=== PATIENT | female | born 1945 | race Caucasian/White ===

== ENCOUNTER 2016-07-08 02:21 | Emergency (ER) | payer MEDICARE ==
[2016-07-08 03:14] LABS: BASOPHIL % 0.3 % (0-2); PLATELET COUNT 262 x10^3mcL (130-400); RED CELL DISTRIBUTION WIDTH 14.4 % (11.5-14.5)
[2016-07-08 03:32] LABS: CALCIUM 8.8 mg/dL (8.5-10.1); CARBON DIOXIDE 27.7 mmol/L (21-32); CHLORIDE SERUM 106 mmol/L (98-107); CREATININE SERUM 0.7 mg/dL (0.6-1.0); GFR1 > 60 mL/min; GLUCOSE SERUM 177 mg/dL (74-106); POTASSIUM SERUM 3.6 mmol/L (3.5-5.1); SODIUM SERUM 143 mmol/L (136-145)
[2016-07-08 03:37] LABS: ALBUMIN 3.5 g/dL (3.4-5.0); ALKALINE PHOSPHATASE 103 U/L (46-116); ALT/SGPT 21 U/L (14-59); AST/SGOT 20 U/L (15-37); TOTAL PROTEIN, SERUM 7.2 g/dL (6.4-8.2)
[2016-07-08 05:34] VITALS: BP 150/68
== END 2016-07-08 05:34 | disposition short-term general hospital (02) ==
LOC: ED 02:21
PROVIDERS: Emergency Medicine
DX: I10 Essential (primary) hypertension (principal); I61.9 Nontraumatic intracerebral hemorrhage, unspecified
CPT/HCPCS: 83880; J1885; J2270; J2405; J2765; J3490; J7040

== ENCOUNTER 2017-07-30 18:06 | Inpatient (IN) | payer MEDICARE ==
[~2017-07-30] VITALS: Ht 160 cm; Wt 79.4 kg
[2017-07-30 18:15] VITALS: Ht 160 cm; Wt 79.4 kg
[2017-07-30] MEDS ORDERED: CARVEDILOL12.5 M1 PO (18:27)
[2017-07-30] MEDS ORDERED: METFORMIN HCL1000 MG PO (18:27)
[2017-07-30] MEDS ORDERED: PANTOPRAZOLE SO40 M1 PO (18:27)
[2017-07-30] MEDS ORDERED: ISOSORBIDE MONO30 MG PO (18:28)
[2017-07-30] MEDS ORDERED: LOSARTAN POTASS50 M1 PO (18:34)
[2017-07-30] MEDS ORDERED: SIMVASTATIN40 M1 PO (18:34)
[2017-07-30 19:18] LABS: BASOPHIL % 0.2 % (0-2); PLATELET COUNT 311 x10^3mcL (130-400)
[2017-07-30 19:19] LABS: RED CELL DISTRIBUTION WIDTH 14.9 % (11.5-14.5)
[2017-07-30 19:48] LABS: ALBUMIN 3.7 g/dL (3.4-5.0); ALKALINE PHOSPHATASE 104 U/L (46-116); ALT/SGPT 15 U/L (14-59); AST/SGOT 13 U/L (15-37); BILIRUBIN TOTAL 0.3 mg/dL (0.20-1.00); CALCIUM 9.1 mg/dL (8.5-10.1); CARBON DIOXIDE 28.7 mmol/L (21-32); CHLORIDE SERUM 119 mmol/L (98-107); CREATININE SERUM 0.8 mg/dL (0.6-1.0); GLUCOSE SERUM 155 mg/dL (74-106); POTASSIUM SERUM 4.5 mmol/L (3.5-5.1); SODIUM SERUM 142 mmol/L (136-145); TOTAL PROTEIN, SERUM 7.5 g/dL (6.4-8.2)
[2017-07-30 20:36] LABS: T3 TOTAL 1.12 ng/mL
[2017-07-30 20:37] LABS: FREE T4 1.26 ng/dL (0.76-1.46); FREE THYROXINE INDEX 3.7 ug/dL (1.4-4.5); T4(THYROXINE) 10.7 ug/dL (4.7-13.3)
[2017-07-30 20:51] VITALS: BP 195/93
[2017-07-30 21:01] LABS: MAGNESIUM 1.7 mg/dL (1.8-2.4); PHOSPHOROUS 3.8 mg/dL (2.5-4.9)
[2017-07-30 21:03] LABS: CHOLESTEROL/HDL RATIO 2.2
[2017-07-31 02:03] VITALS: BP 124/76
[2017-07-31 06:02] VITALS: BP 113/53
[2017-07-31 06:06] LABS: microscopic required? NO
[2017-07-31 06:14] LABS: BASOPHIL % 0.3 % (0-2); PLATELET COUNT 288 x10^3mcL (130-400)
[2017-07-31 06:15] LABS: CALCIUM 8.8 mg/dL (8.5-10.1); CARBON DIOXIDE 27.3 mmol/L (21-32); CHLORIDE SERUM 109 mmol/L (98-107); CREATININE SERUM 0.8 mg/dL (0.6-1.0); GLUCOSE SERUM 105 mg/dL (74-106); MAGNESIUM 2.4 mg/dL (1.8-2.4); PHOSPHOROUS 4.7 mg/dL (2.5-4.9); POTASSIUM SERUM 4.7 mmol/L (3.5-5.1); SODIUM SERUM 145 mmol/L (136-145)
[2017-07-31 07:09] LABS: UA SPECIFIC GRAVITY >=1.030 (1.005-1.035); urine erythrocyte NEGATIVE (NEGATIVE)
[2017-07-31 07:11] LABS: RED CELL DISTRIBUTION WIDTH 14.9 % (11.5-14.5)
[2017-07-31 07:45] LABS: AMPHETAMINE QUAL UR NONE DETECTED (NEG <=1000)
[2017-07-31 08:20] VITALS: BP 142/55
[2017-07-31 12:21] VITALS: BP 142/55
[2017-07-31 13:05] VITALS: BP 126/49
[2017-07-31] MEDS ORDERED: BLOOD GLUCOSE1 EACH MC (17:05)
[2017-07-31] MEDS ORDERED: FREESTYLE LITE1 EAC2 MC (17:05)
[2017-07-31] MEDS ORDERED: LANCET DEVICE1 EACH MC (17:05)
== END 2017-07-31 17:20 | disposition home or self-care (01) | DRG 77 ==
LOC: ED 18:06 → DU 20:01
PROVIDERS: Emergency Medicine; Family Medicine
DX: I67.4 Hypertensive encephalopathy (principal); N17.0 Acute kidney failure with tubular necrosis; I69.251 Hemiplegia and hemiparesis following other nontraumatic intracranial hemorrhage affecting right dominant side; G90.8 Other disorders of autonomic nervous system; I25.10 Atherosclerotic heart disease of native coronary artery without angina pectoris; E86.0 Dehydration; E11.65 Type 2 diabetes mellitus with hyperglycemia; E11.51 Type 2 diabetes mellitus with diabetic peripheral angiopathy without gangrene; D64.9 Anemia, unspecified; E83.42 Hypomagnesemia; D72.829 Elevated white blood cell count, unspecified; E66.9 Obesity, unspecified; E04.2 Nontoxic multinodular goiter; Z68.31 Body mass index [BMI] 31.0-31.9, adult; Z95.1 Presence of aortocoronary bypass graft; Z98.2 Presence of cerebrospinal fluid drainage device
CPT/HCPCS: 82962; 83880; 84439; 97535-GP; J2405; J3475; J7030; Q0092

== ENCOUNTER → 2017-08-01 | Outpatient (CLI) | payer OTHER ==
[~2017-08-01] MED LIST: BLOOD GLUCOSE1 EACH MC; CARVEDILOL12.5 M1 PO; FREESTYLE LITE1 EAC2 MC; ISOSORBIDE MONO30 MG PO; LANCET DEVICE1 EACH MC; LOSARTAN POTASS50 M1 PO; METFORMIN HCL1000 MG PO; PANTOPRAZOLE SO40 M1 PO; SIMVASTATIN40 M1 PO
== END | disposition home or self-care (01) ==
LOC: MA 09:05
PROC: BH02ZZZ Plain Radiography of Bilateral Breasts (ICD-10-PCS; principal; 2017-08-01)
DX: Z12.31 Encounter for screening mammogram for malignant neoplasm of breast (principal)
CPT/HCPCS: 77067